=== PATIENT | male | born 1935 | race Hispanic/Latino ===

== ENCOUNTER 2016-12-03 13:45 | Emergency (ER) | payer MEDICARE ==
[2016-12-03 13:59] VITALS: BP 144/74; PULSE 76; RESP 18; TEMP 98; O2SAT 96; BMI 27.4
[2016-12-03] MEDS ORDERED: Tetanus/Diphtheria Toxoids 0.5 ml Syringe IM ONE ×2 (14:27→14:30)
[2016-12-03] MEDS ORDERED: Lidocaine 2% Inj (20ml) INFIL ONE (14:27)
[2016-12-03] MEDS ORDERED: Lidocaine 2% Inj (20ml) ONE (14:30)
--- NOTE | 2016-12-03 14:58 | RAD ---
PROCEDURE: Left Index finger radiographs. HISTORY: injury COMPARISON: None. TECHNIQUE: AP radiograph of the left hand, as well as spot oblique and lateral images of index finger were obtained. FINDINGS: LEFT INDEX FINGER: No fracture. No radiopaque foreign body identified. Remainder of the left hand (as seen on the AP view) grossly intact. JOINTS: Osteoarthritis of DIP 2. SOFT TISSUES: Soft tissue swelling about DIP 2. OTHER FINDINGS: None. IMPRESSION: No fracture or radiopaque foreign body identified.
[2016-12-03] MEDS ORDERED: Bacitracin 500 Units/gm Oint Foilpak UD ONE (15:06)
[2016-12-03] MEDS ORDERED: Amoxicillin-Clav 875-125 mg Tab PO STA (15:24)
--- NOTE | 2016-12-03 15:24 | C.PDOC ---
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 Patient states "was cutting wood with machine and did not look". Otherwise, Patient denies obvious deformity to injured hand and finger, denies weakness, sensory or vascular deficits to left hand, denies nay other active complaints related to accident. Ambulate to Ed for evaluation, not in any apparent distress. Time Seen by Provider: 12/03/16 14:05 Chief Complaint (Nursing): Finger,Hand,&Wrist History Per: Patient History/Exam Limitations: no limitations Onset/Duration Of Symptoms: Sudden Onset (INSURANCE VERIFICATION REPRESENTATIVE ) Past Medical History Reviewed: Historical Data, Nursing Documentation, Vital Signs Vital Signs: Last Vital Signs Temp 98.0 F 12/03/16 13:59 Pulse 76 12/03/16 13:59 Resp 18 12/03/16 13:59 BP 144/74 12/03/16 13:59 Pulse Ox 96 12/03/16 15:47 Family History: States: No Known Family Hx - Social History Hx Alcohol Use: No Hx Substance Use: No Review Of Systems Except As Marked, All Systems Reviewed And Found Negative. Musculoskeletal: Positive for: Other ((+) Left Index - Injury/laceration ). Negative for: Arm Pain, Back Pain Neurological: Negative for: Weakness, Numbness Physical Exam - Physical Exam Appears: Well, Non-toxic, No Acute Distress Skin: Normal Color, Warm Extremity: Normal ROM (Left hand), No Tenderness, Capillary Refill (less than 2sec to Left index), No Deformity, Other (Left 2nd distal phalanx: 3cm irregular , cutaneous laceration to palpamar aspect with superificial skin avulsion. FAROM of Left index finger, no neurovascular deficist distally to injury.) Neurological/Psych: Oriented x3, Normal Speech, Normal Motor, Normal Sensation, Normal Reflexes ED Course And Treatment O2 Sat by Pulse Oximetry: 96 Pulse Ox Interpretation: Normal - Other Rad X-Ray - Left Hand X-Ray: Viewed By Me, Read By Radiologist Interpretation: PROCEDURE: Left Index finger radiographs. HISTORY: injury. COMPARISON: None. TECHNIQUE: AP radiograph of the left hand, as well as spot oblique and lateral images of index finger were obtained. FINDINGS: LEFT INDEX FINGER: No fracture. No radiopaque foreign body identified. Remainder of the left hand (as seen on the AP view) grossly intact. JOINTS: Osteoarthritis of DIP 2. SOFT TISSUES: Soft tissue swelling about DIP 2. OTHER FINDINGS: None. IMPRESSION: No fracture or radiopaque foreign body identified. Progress Note: On re-eavl, pt is afebrile, hemodynamiclay stable. NOn-toxic. Ambulaoty rin ED with stable gait. Left hand: laceration to distal 2nd phalanx repaired with sutures w/o difficulty. FAROM, no neurovascular deficits. neurologicaly intact. tetanus, abx given. Pt advised on wound care. REf. to F /u with PMD in 2 days for wound check. return to ED at any time if any sign of wound infection. Pt understand and stable for discharge now. Laceration - Laceration Repair Left index Wound Length (In cm): 3 Description Of Wound: Irregular (cutaneous) Anesthesia: Lidocaine 2% (digital block) Wound Examination: Irrigated With Saline, No FB With Wound Exploration, No Tendon Injury With Wound Exploration Wound Closure: Suture (#5) Suture Technique And Material Used: Interrupted, Prolene (5-0) Wound Complexity: Simple Medical Decision Making Medical Decision Making: PLAN: * X-Ray - Left Hand * Augmentin PO * Tetanus IM Disposition Counseled Patient/Family Regarding: Studies Performed, Diagnosis, Need For Followup, Rx Given - Disposition Referrals: Marcos Gonsalves MD [Staff Provider] - Disposition: HOME/ ROUTINE Disposition Time: 15:22 Condition: STABLE Additional Instructions: Keep wound clean, dry Change dressing daily Take antibiotic as prescribed Follow up with PMD in 2 days for wound check. Return to ED at any time if any worsening or new changes. Prescriptions: Amoxicillin/Clavulanate [Augmentin 875 MG-125 MG] 1 tab PO BID #14 tab Bacitracin OINT 1 applic TP BID #1 tube Instructions: Finger Laceration (ED) - Clinical Impression Clinical Impression: Finger laceration - PA / CARDIAC NURSE SPECIALIST / Resident Statement MD/DO has reviewed & agrees with the documentation as recorded. - Scribe Statement The provider has reviewed the documentation as recorded by the Scribe Dorothy Hein All medical record entries made by the Scribe were at my direction and personally dictated by me. I have reviewed the chart and agree that the record accurately reflects my personal performance of the history, physical exam, medical decision making, and the department course for this patient. I have also personally directed, reviewed, and agree with the discharge instructions and disposition.
[2016-12-03] MEDS ORDERED: Amoxicillin-Clav 875-125 mg Tab PO ONE (15:28)
== END 2016-12-03 15:34 | disposition home or self-care (01) ==
LOC: C.ER 13:45
DX: S61.211A Laceration without foreign body of left index finger without damage to nail, initial encounter (principal); W31.9XXA Contact with unspecified machinery, initial encounter; Y93.89 Activity, other specified; Y92.009 Unspecified place in unspecified non-institutional (private) residence as the place of occurrence of the external cause

== ENCOUNTER 2016-12-09 13:44 | Emergency (ER) | payer MEDICARE ==
[2016-12-09 13:44] VITALS: BMI 27.4
[2016-12-09 13:59] VITALS: BP 158/69; PULSE 78; RESP 20; TEMP 98.1; O2SAT 95
--- NOTE | 2016-12-09 14:22 | C.PDOC ---
History Of Present Illness FOR SUTURE REMOVAL. PLACED L 2ND FINGER 12/03. PS HEALING WELL. NO PAIN, DC EXAM L 2ND FINGER [address] NO INFCLAYTON VILCHIS DC SUTURES REMOVED W 11 BLADE Time Seen by Provider: 12/09/16 14:10 Chief Complaint (Nursing): Suture/Staple Removal History Per: Patient History/Exam Limitations: no limitations Current Symptoms Are (Timing): Still Present Past Medical History Reviewed: Historical Data, Nursing Documentation, Vital Signs Vital Signs: Last Vital Signs Temp 98.1 F 12/09/16 13:56 Pulse 78 12/09/16 13:56 Resp 20 12/09/16 13:56 BP 158/69 H 12/09/16 13:56 Pulse Ox 95 12/09/16 14:24 Family History: States: No Known Family Hx - Social History Hx Alcohol Use: No Hx Substance Use: No - Immunization History Hx Tetanus Toxoid Vaccination: Yes Hx Influenza Vaccination: No Hx Pneumococcal Vaccination: No Review Of Systems Except As Marked, All Systems Reviewed And Found Negative. Constitutional: Negative for: Fever Gastrointestinal: Negative for: Nausea, Vomiting Skin: Negative for: Rash Physical Exam - Physical Exam Appears: Non-toxic, No Acute Distress Skin: Warm, Dry, Other (L 2ND FINGER [address] NO INFXCLAYTON Zuniga DC) ED Course And Treatment O2 Sat by Pulse Oximetry: 95 Disposition Counseled Patient/Family Regarding: Diagnosis, Need For Followup - Disposition Referrals: [facility] [Outside] Susan Justice MD [Provisional Staff] - Disposition: HOME/ ROUTINE Disposition Time: 14:24 Condition: IMPROVED Additional Instructions: RETURN IF WORSENING SYMPTOMS. Instructions: Chronic Wound Care (ED) - Clinical Impression Clinical Impression: Removal of suture - Scribe Statement The provider has reviewed the documentation as recorded by the Newton Chatman All medical record entries made by the Ashtynibjimmy were at my direction and personally dictated by me. I have reviewed the chart and agree that the record accurately reflects my personal performance of the history, physical exam, medical decision making, and the department course for this patient. I have also personally directed, reviewed, and agree with the discharge instructions and disposition.
[2016-12-09] MEDS ORDERED: Bacitracin 500 Units/gm Oint Foilpak UD ONE (14:32)
== END 2016-12-09 14:44 | disposition home or self-care (01) ==
LOC: C.ER 13:44
DX: Z48.02 Encounter for removal of sutures (principal)

== ENCOUNTER 2018-08-04 12:14 | Outpatient (CLI) | payer MEDICARE | END 2018-08-04 12:15 | disposition home or self-care (01) | LOC: C.RADH 12:14 | DX: R05 Cough (principal) ==